=== PATIENT | female | born 1985 | race African-American/Black ===

== ENCOUNTER 2018-01-29 02:52 | Emergency (ER) | payer MEDICAID, OTHER ==
[~2018-01-29] VITALS: Ht 170.2 cm; Wt 91.0 kg
[2018-01-29] MEDS ORDERED: HALOPERIDOL LACTATE 5MG/ML VIAL IM ONE (03:45)
[2018-01-29] MEDS ORDERED: LORAZEPAM 1MG TABLET PO ONE (03:45)
[2018-01-29 04:06] LABS: BASOPHILS % 0.9 % (0.0-2.0); EOSINOPHILS % 1.8 % (0.0-5.0); HEMATOCRIT. 43.4 % (36.0-48.0); HEMOGLOBIN. 14.9 g/dL (12.0-16.0); LYMPHOCYTES % 28.5 % (20.0-50.0); MEAN CORPUSCULAR HEMOGLOBIN 31.7 pg (28.0-32.0); MEAN CORPUSCULAR VOLUME 92.8 fL (81.0-99.0); MEAN PLATELET VOLUME 7.5 fl (7.4-10.4); MONOCYTES % 5.7 % (2.0-8.0); NEUTROPHILS % 63.1 % (40.0-76.0); PLATELET 388 x1000/uL (130-400); RED BLOOD CELL COUNT 4.68 mill/uL (4.2-5.4); RED CELL DISTRIBUTION WIDTH 14.2 % (11.6-14.6)
[2018-01-29 04:14] LABS: CLARITY URINE CLEAR (CLEAR); COLOR URINE YELLOW (YELLOW); KETONES URINE NEGATIVE (NEGATIVE); LEUKOCYTE ESTERASE URINE 1+ (NEGATIVE); NITRITE URINE NEGATIVE (NEGATIVE); OCCULT BLOOD URINE NEGATIVE (NEGATIVE); PH URINE 5.5 (4.5-8.0); PROTEIN URINE NEGATIVE (NEGATIVE); SPECIFIC GRAVITY URINE 1.007 (1.005-1.030); UROBILINOGEN URINE 0.2 E.U./dL (0.2-1.0)
[2018-01-29 04:14] LABS: CHLORIDE 107 mEq/L (98-107); ETHANOL BLOOD 242 mg/dL
[2018-01-29] MEDS ORDERED: ZIPRASIDONE MESYLATE 20MG/VIAL IM ONE (04:15)
[2018-01-29] MEDS ORDERED: ZIPRASIDONE MESYLATE 20MG/VIAL IM NR (04:15)
[2018-01-29] MEDS ORDERED: LORAZEPAM 2MG/ML CPJ IM ONE (04:15)
[2018-01-29 04:49] LABS: *AMPHETAMINES SCREEN URINE NEGATIVE (NEGATIVE)
[2018-01-29 04:53] LABS: *BARBITURATES SCREEN URINE NEGATIVE (NEGATIVE); *BENZODIAZEPINES SCREEN URINE NEGATIVE (NEGATIVE); *COCAINE SCREEN URINE NEGATIVE (NEGATIVE); METHADONE URINE SCREEN NEGATIVE (NEGATIVE); OPIATES URINE SCREEN NEGATIVE (NEGATIVE); PHENCYCLIDINE URINE SCREEN NEGATIVE (NEGATIVE)
[2018-01-29 04:54] LABS: CANNABINOID URINE SCREEN PRESUMTIVE POSITIVE (NEGATIVE)
[2018-01-29] MEDS ORDERED: CEFTRIAXONE 1 G PREMIX 50 ML IV ONE (05:00)
[2018-01-29] MEDS ORDERED: CEFTRIAXONE SODIUM 1 G/VIAL IM ONE (06:15)
[2018-01-29 15:30] VITALS: BP 127/75
== END 2018-01-29 16:55 | disposition home or self-care (01) ==
LOC: ER 02:52
DX: F10.129 Alcohol abuse with intoxication, unspecified (principal); R45.851 Suicidal ideations; N39.0 Urinary tract infection, site not specified; V89.2XXA Person injured in unspecified motor-vehicle accident, traffic, initial encounter; Y93.89 Activity, other specified; Y92.89 Other specified places as the place of occurrence of the external cause; Y99.8 Other external cause status
CPT/HCPCS: 36415; 70450; 71045; 72125; 80053; 80305; 80307; 80329; 81003; 81025; 84443; 85025; 96372; 99285; G0482; J0696; J1630; J2060; J3486; Z7610